=== PATIENT | male | born 1965 | race African-American/Black ===

== ENCOUNTER 2024-01-25 21:59 | Emergency (ER) | payer MEDICAID, OTHER ==
[~2024-01-25] VITALS: Ht 180.3 cm; Wt 63.0 kg
[2024-01-25 23:18] LABS: CARBON DIOXIDE 27 mEq/L (21-32); CHLORIDE 101 mEq/L (98-107); POTASSIUM 4.5 mEq/L (3.5-5.1); SODIUM 138 mEq/L (136-145)
[2024-01-25 23:19] LABS: CALCIUM 9.9 mg/dL (8.7-10.4)
[2024-01-25 23:24] LABS: LACTIC ACID 2.6 mmol/L (0.4-2.0)
[2024-01-25 23:24] LABS: GLUCOSE 84 mg/dL (70-105); UREA NITROGEN BLOOD 40 mg/dL (9-23)
[2024-01-25] MEDS: ONDANSETRON HCL 4MG/2ML INJ IV ONE (23:24)
[2024-01-25] MEDS: SODIUM CHLORIDE 0.9% 500 ML IV ONE (23:24)
[2024-01-25 23:25] LABS: ALANINE AMINOTRANSFERASE 13 IU/L (10-49); ASPARTATE AMINOTRANSFERASE 25 IU/L (<34)
[2024-01-25 23:26] LABS: ALBUMIN 4.1 g/dL (3.2-4.8); BILIRUBIN DIRECT 0.1 mg/dL (<=3.0); BILIRUBIN TOTAL 0.4 mg/dL (0.1-1.0); PROTEIN TOTAL 6.9 g/dL (6.0-8.3)
[2024-01-25 23:37] LABS: BASOPHILS % 0.5 % (0.0-2.0); EOSINOPHILS % 1.1 % (0.0-5.0); HEMATOCRIT. 31.3 % (42.0-52.0); HEMOGLOBIN. 10.2 g/dL (14.0-18.0); LYMPHOCYTES % 9.3 % (20.0-50.0); MEAN CORPUSCULAR HEMOGLOBIN 31.2 pg (28.0-32.0); MEAN CORPUSCULAR HGB CONC 32.6 g/dL (31.0-37.0); MEAN CORPUSCULAR VOLUME 95.8 fL (80.0-94.0); MEAN PLATELET VOLUME 8.9 fl (7.4-10.4); MONOCYTES % 7.9 % (2.0-8.0); NEUTROPHILS % 81.2 % (40.0-76.0); PLATELET 145 x1000/uL (130-400); RED BLOOD CELL COUNT 3.27 mill/uL (4.7-6.1); RED CELL DISTRIBUTION WIDTH 15.4 % (11.6-14.6); WHITE BLOOD COUNT 8.4 x1000/uL (4.5-11.0)
[2024-01-25 23:41] LABS: CREATININE 7.4 mg/dL (0.6-1.3); TROPONIN I HIGH SENSITIVITY 684 ng/L (3.0-53)
[2024-01-26] MEDS ORDERED: NOREPINEPHRINE 8MG/250ML PMX 250 ML IV STA (00:01)
[2024-01-26] MEDS: NOREPINEPHRINE 8MG/250ML PMX 250 ML IV PRN (00:26)
[2024-01-26] MEDS ORDERED: VANCOMYCIN 1G PREMIX 200 ML IV ONE (01:00)
[2024-01-26] MEDS: HYDROCODONE/ACETAMINOPHEN 5/325MG TABLET PO ONE (01:01)
[2024-01-26] MEDS: PIPERACILLIN/TAZO 3.375G/50ML 50 ML IV ONE (01:08)
[2024-01-26] MEDS ORDERED: CALCIUM CARBONATE 500MG TABLET CHEW PO PRN (01:45)
[2024-01-26 01:56] LABS: PARTIAL THROMBOPLASTIN TIME 28.2 sec (23.4-31.0); PROTHROMBIN TIME 11.5 sec (9.6-11.0)
[2024-01-26] MEDS ORDERED: ACETAMINOPHEN 325MG TABLET PO PRN ×2 (02:30)
[2024-01-26] MEDS ORDERED: ONDANSETRON HCL 4MG/2ML INJ IV PRN (02:30)
[2024-01-26] MEDS ORDERED: DOCUSATE SODIUM 100MG CAPSULE PO PRN (02:30)
[2024-01-26] MEDS ORDERED: CLONIDINE 0.1MG TABLET PO PRN (02:30)
[2024-01-26] MEDS ORDERED: NOREPINEPHRINE 8MG/250ML PMX 250 ML IV PRN (02:30)
[2024-01-26] MEDS ORDERED: HYDROCODONE/ACETAMINOPHEN 5/325MG TABLET PO PRN (02:30)
[2024-01-26] MEDS ORDERED: NALOXONE HCL 0.4MG/ML VIAL IV PRN (02:45)
[2024-01-26] MEDS: VANCOMYCIN 1.25GM PMX (XELLIA) 250 ML IV NR (02:58)
[2024-01-26] MEDS: MORPHINE SULFATE 2 MG/ML INJ (NOT FOR IM USE) IV NR (04:21)
[2024-01-26 05:22] LABS: TROPONIN I HIGH SENSITIVITY 501 ng/L (3.0-53)
[2024-01-26] MEDS: IPRATROPIUM/ALBUTEROL 0.5-3(2.5)MG/3ML NEB HHN PRN (05:23)
[2024-01-26 05:25] VITALS: PULSE 91; RESP 26; O2SAT 95
[2024-01-26 05:48] VITALS: BP 101/43; PULSE 83; RESP 22; TEMP 36.50292; O2SAT 91
[2024-01-26] MEDS ORDERED: HALOPERIDOL LACTATE 5MG/ML VIAL IM ONE (06:12)
[2024-01-26 06:17] LABS: TROPONIN I HIGH SENSITIVITY 3897 ng/L (3.0-53)
[2024-01-26] MEDS ORDERED: VASOPRESSIN 20 UNIT in SODIUM CHLORIDE 0.9% 99 ML IV PRN (06:30)
[2024-01-26] MEDS ORDERED: PROPOFOL 10MG/ML 100ML 100 ML IV PRN (06:30)
[2024-01-26] MEDS ORDERED: FENTANYL 2500MCG/250ML PMX 250 ML IV PRN ×2 (06:30)
[2024-01-26] MEDS ORDERED: HALOPERIDOL LACTATE 5MG/ML VIAL IM NR (06:30)
[2024-01-26] MEDS ORDERED: FENTANYL CITRATE 2,500 MCG in SODIUM CHLORIDE 0.9% 200 ML IV PRN (06:45)
[2024-01-26] MEDS ORDERED: PIPERACILLIN/TAZO 3.375G/100ML 100 ML IV SCH (21:00)
== END 2024-01-26 08:00 ==
LOC: ER 21:59 → CANBEDREQ 01-26 08:06
DX: A41.9 Sepsis, unspecified organism (principal); R65.21 Severe sepsis with septic shock; J18.9 Pneumonia, unspecified organism; I12.0 Hypertensive chronic kidney disease with stage 5 chronic kidney disease or end stage renal disease; I25.2 Old myocardial infarction; N18.6 End stage renal disease; Z95.0 Presence of cardiac pacemaker; Z94.0 Kidney transplant status; Z95.2 Presence of prosthetic heart valve; Z99.2 Dependence on renal dialysis
CPT/HCPCS: 80076; 80048; 83880; 83605 ×2; 85025; 87040; 84484 ×2; 36415 ×2; 84145; 71045; 93005 ×2; 92950 ×2; 96361; 96375 ×2; 99291; 82962; 85610; 85730; 94640; 31500; 96365; 87426; J2405 ×2; J7040; J3370; J1630; J3490; J2543; J2704; J2270; Z7610 ×7; 94002